=== PATIENT | male | born 1995 | race Caucasian/White ===

== ENCOUNTER 2017-10-04 23:10 | Emergency (ER) | payer OTHER ==
[2017-10-04 23:13] VITALS: BP 132/71; PULSE 122; RESP 16; TEMP 97.7; O2SAT 98
[2017-10-04] MEDS ORDERED: FAMOTIDINE 20 MG TAB PO ONE (23:21)
[2017-10-04] MEDS ORDERED: diphenhydrAMINE 25 MG CAP PO ONE (23:21)
--- NOTE | 2017-10-04 23:26 | EDPHY ---
H & P Smoking Status: Current some day smoker Time Seen by Provider: 10/04/17 23:15 HPI/ROS: CHIEF COMPLAINT: Hives HISTORY OF PRESENT ILLNESS: 22-year-old male generally healthy complaining 24 hr hives primarily to his upper extremities and trunk. He denies prior history of similar. Denies: Chest pain, dyspnea, dysphagia, odynophagia, back pain, intraoral lesions, diarrhea, ocular irritation. REVIEW OF SYSTEMS: A ten point review of systems was performed and is negative with the exception of the items mentioned in the HPI PAST MEDICAL & SURGICAL HISTORY: No pertinent medical or surgical history SOCIAL HISTORY:Nonsmoker PHYSICAL EXAM (Prior to examination, patient consented to physical exam, hands were washed and my usual and customary physical exam procedures followed) 1) GENERAL: Well-developed, well-nourished, alert and oriented. Appears to be in no acute distress. Smiling shakes my hand appears well overall 2) HEAD: Normocephalic, atraumatic 3) HEENT: Pupils equal, round, reactive to light bilaterally. Sclera anicteric. Nasopharynx, oropharynx, clear, no lesions. No tonsillar enlargement or exudate. 4) NECK: Full range of motion, no meningeal signs. 5) LUNGS: Clear auscultation bilaterally, no wheezes, no rhonchi, no retractions. 6) HEART: Regular rate and rhythm, no murmur, no heave, no gallop. 7) ABDOMEN: No guarding, no rebound, no focal tenderness, 8) MUSCULOSKELETAL: No peripheral edema or discoloration. 9) BACK: intermittent urticaria. 10) SKIN: Patient's bilateral upper extremities and anterior trunk diffuse salmon colored raised started 11) Psychiatric: Patient is oriented X 3, there is no agitation. DIFFERENTIAL DIAGNOSIS: In no particular include but limited to urticaria, contact dermatitis, anaphylaxis (Sunshine,Sherry Dominga) Constitutional: Initial Vital Signs Temperature (C) 36.5 C 10/04/17 23:12 Heart Rate 122 H 10/04/17 23:12 Respiratory Rate 16 10/04/17 23:12 Blood Pressure 132/71 H 10/04/17 23:12 O2 Sat (%) 98 10/04/17 23:12 Allergies/Adverse Reactions: poison raúl extract Allergy (Verified 02/13/16 17:11) Home Medications: Medication Instructions Recorded Famotidine [Pepcid 20 MG (*)] 20 mg PO BID #4 tab 10/04/17 diphenhydrAMINE [Benadryl 25 MG 25 mg PO Q6 #8 tab 10/04/17 (*)] MDM/Departure - MDM Medications Given: Discontinued Medications Diphenhydramine HCl (Benadryl) 50 mg PO EDNOW ONE Stop: 10/04/17 23:22 Last Admin: 10/04/17 23:23 Dose: 50 mg Famotidine (Pepcid) 40 mg PO EDNOW ONE Stop: 10/04/17 23:22 Last Admin: 10/04/17 23:23 Dose: 40 mg ED Course/Re-evaluation: I think this patient's symptoms are more likely secondary to urticaria. Discussed possibility of contact dermatitis I recommend he attempt to identify any offending allergens and remove these . His lungs are clear bilaterally and shows no signs of respiratory distress. Doubt anaphylaxis. He has been given dose of H1 and H2 receptor antagonists emergency department. I do not think that epinephrine or steroids currently indicated. I do not think that hospital admission is indicated. He feels comfortable being discharged. Recommend continue H1 H2 antagonists. Usual and customary allergic reaction precautions instructions provided. Care of patient under supervision of secondary supervising physician Dr Montoya . (Sherry Gonsalez) PHYSICIAN DOCUMENTATION: The patient was evaluated and managed by the Physician Airways Control Specialist. My co- signature indicates that I have reviewed this chart and I agree with the findings and plan of care as documented. I am the secondary supervising physician. (Dayna Montoya) - Depart Disposition: Home, Routine, Self-Care Clinical Impression: Urticaria Condition: Good Instructions: Urticaria (ED) Additional Instructions: Call 911 if you develop difficulty swallowing or breathing or any other symptoms that concern you. Prescriptions: diphenhydrAMINE [Benadryl 25 MG (*)] 25 mg PO Q6 #8 tab Famotidine [Pepcid 20 MG (*)] 20 mg PO BID #4 tab Referrals: Peggy Varghese [Primary Care Provider] - 2-3 days, call for appt.
== END 2017-10-04 23:32 | disposition home or self-care (01) ==
DX: L50.9 Urticaria, unspecified (principal)

== ENCOUNTER 2018-10-22 23:28 | Emergency (ER) | payer OTHER ==
[2018-10-23] MEDS ORDERED: IPRATROPIUM/ALBUTEROL 3 ML DEYVIAL IH ONE (00:34)
[2018-10-23] MEDS ORDERED: DEXAMETHASONE 4 MG TAB PO ONE ×2 (00:34)
[2018-10-23] MEDS ORDERED: FAMOTIDINE 20 MG TAB PO ONE (00:34)
[2018-10-23] MEDS ORDERED: DEXAMETHASONE 10 MG/ML VIAL IVP ONE (00:38)
--- NOTE | 2018-10-23 01:06 | EDPHY ---
H & P Stated Complaint: Lump feeling in throat since Saturday. Time Seen by Provider: 10/22/18 23:45 HPI/ROS: CC: throat discomfort HPI: This 23-year-old male with past medical history of kyphosis and allergies presents to the emergency department today with his mother complaining of feeling discomfort in his throat and his if his breathing becomes restricted. He states his neck has felt "tense, like something in there is in the wrong place" for the last 2 days. He had similar symptoms 2 years ago and and says when he had [facility] look in his throat they said his "epiglottis was a little tighter than usual." He recently saw an urgent care for similar issues in they gave him a DuoNeb which he states helped for a short period of time as well as an albuterol inhaler. He states the symptoms can occur at any time and are occasionally worse when he lies down. Sometimes he feels short of breath with conversation. He is able to eat and drink and exercise without difficulty. He also states that when he went on spring break a friend told him he sounded like he was suffocating when he was sleeping. He admits to being under lot of stress in his studies. He has 1 year left of his undergraduate degree in Linguistics and plans on doing a master's program. He does vape and smokes marijuana every few days. He also drinks 4 alcoholic beverages a few times a week. He drinks caffeine daily. He quit tobacco use 1 year ago and prior to that smoked 1/2 to 1 pack per day since age 20. He denies fever, chills, headache, ear pain, stiff neck, chest pain, abdominal pain, nausea or vomiting. REVIEW OF SYSTEMS: Constitutional: No fever, no chills. Eyes: No discharge. ENT: See HPI. Respiratory: No cough. Cardiac: No chest pain, no palpitations. Gastrointestinal: No abdominal pain, no vomiting. Genitourinary: No dysuria. Musculoskeletal: No back pain. Skin: No rashes. Neurological: No headache. Source: Patient, Family (Mother) Exam Limitations: No limitations - Personal History Current Tetanus/Diphtheria Vaccine: Yes Current Tetanus Diphtheria and Acellular Pertussis (TDAP): Yes Tetanus Vaccine Date: 2016 - Medical/Surgical History PMH: Past medical history: kyphosis, allergies, possibly TMJ. Past surgical history: Denied Family history: Mother has low thyroid and states she had a similar issue with swallowing when she was her child's age, father has thyroid disorder and sleep apnea. No known drug allergies Medications include recently prescribed albuterol inhaler and potentially over- the-counter Zyrtec Primary care provider is Dr. Peggy Cristina Asthma: No Hx Chronic Respiratory Disease: No Hx Diabetes: No Hx Cardiac Disease: No Hx Renal Disease: No Hx Cirrhosis: No Hx Alcoholism: No Hx HIV/AIDS: No Hx Splenectomy or Spleen Trauma: No Other PMH: KYPHOSIS, TMJ, marijuana, vaping, Urgent treated for Asthma, seasonal allergies. - Social History Smoking Status: Current every day smoker Additional Social History: The patient quit tobacco approximately 1 year ago. Prior to that he smoked 1/2 to 1 pack per day since age 20. He continues to vape. He drinks 4 alcoholic beverages a few times per week. Last drink was yesterday. He uses marijuana once every couple of days. His last use was this evening. He drinks caffeine daily. 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 - Physical Exam Exam: General Appearance: Alert, no respiratory distress. No conversational dyspnea or abnormal breathing. However, when the patient is trying to demonstrate his concern it appears that he voluntarily restricts his airway to sounds like stridor. Eyes: Pupils equal and round no pallor or injection. ENT, Mouth: Mucous membranes are moist. Airway is patent. Oropharynx is clear without erythema or exudate. Uvula is midline and without edema. The patient is able to swallow without difficulty. Respiratory: There are no retractions, lungs are clear to auscultation. Breath sounds are equal and full bilaterally. Cardiovascular: Regular rate and rhythm. No murmurs, gallops, or rubs. Gastrointestinal: Abdomen is soft and nontender, no masses, bowel sounds normal. Neurological: Awake and alert, sensory and motor exams grossly normal. Skin: Warm and dry, no rashes. Musculoskeletal: Neck is supple, nontender. No palpable or visible masses. Back: Kyphosis. Extremities are symmetrical, full range of motion. Psychiatric: Patient is oriented X 3, there is no agitation. Voice is slightly tremulous and the patient appears anxious. DIFFERENTIAL DIAGNOSIS: After history and physical exam differential diagnosis was considered for but not limited to and in no particular order: Epiglottitis , foreign body, tumor, Zenker's diverticulum, allergies, reflux, stress Constitutional: Initial Vital Signs Temperature (C) 99.5 F 10/22/18 23:40 Heart Rate 92 10/22/18 23:40 Respiratory Rate 16 10/22/18 23:40 Blood Pressure 146/100 H 10/22/18 23:40 O2 Sat (%) 97 10/22/18 23:40 O2 Delivery Mode Room Air Allergies/Adverse Reactions: poison raúl extract Allergy (Intermediate, Verified 10/22/18 23:33) Rash Home Medications: Medication Instructions Recorded Albuterol 5 mg/ml INH 10/22/18 Medical Decision Making - Diagnostics Imaging: I viewed and interpreted images myself (Normal soft tissue neck) ED Course/Re-evaluation: The patient was seen and examined. Vital signs reviewed. Prior records reviewed. Prior soft tissue of patient's neck in 2016 was normal. Soft tissue neck today was also normal by my read. The patient states a DuoNeb at the urgent care had improved his symptoms therefore he was given a DuoNeb. He was also given Decadron 10 mg orally to help treat potential allergy related issues or other inflammation and Pepcid 20 mg orally. He is feeling somewhat better. He has declined a CT scan of the soft tissues of his neck. I have discussed my thoughts with him but have admitted I do not know what is causing his symptoms and he will need follow-up with his primary care provider as well as his ENT specialist. I feel he is safe to go home and he and his mother both agree. They will follow up as directed or return to the emergency room sooner if any further problems or concerns. - Data Points Medications Given: Discontinued Medications Albuterol/Ipratropium (Duoneb) 3 ml IH EDNOW ONE Stop: 10/23/18 00:35 Last Admin: 10/23/18 00:48 Dose: 3 ml Dexamethasone (Decadron) 2 mg PO EDNOW ONE Stop: 10/23/18 00:35 Last Admin: 10/23/18 00:40 Dose: Not Given Dexamethasone (Decadron) 8 mg PO EDNOW ONE Stop: 10/23/18 00:35 Last Admin: 10/23/18 00:40 Dose: Not Given Dexamethasone (Decadron Injection) 10 mg IVP EDNOW ONE Stop: 10/23/18 00:39 Last Admin: 10/23/18 00:48 Dose: 10 mg Famotidine (Pepcid) 20 mg PO EDNOW ONE Stop: 10/23/18 00:35 Last Admin: 10/23/18 00:48 Dose: 20 mg Departure - Departure Disposition: Home, Routine, Self-Care Clinical Impression: Throat discomfort Condition: Good Instructions: Direct Laryngoscopy (DC) Additional Instructions: I am not sure what is causing your throat discomfort. Call tomorrow to arrange follow up with your primary care provider as well as your ENT or other specialists as recommended by your primary care provider. You may need further evaluation including a CT scan of the soft tissues of your neck or they may want to look into your throat with a camera. Please refrain from smoking tobacco or marijuana or drinking alcohol until the cause of your symptoms have been identified. Return to the ER if symptoms change or worsen as discussed. Referrals: Peggy Varghese [Non Staff Provider ()] - As per Instructions
[2018-10-23 01:34] VITALS: BP 129/75
== END 2018-10-23 01:25 | disposition home or self-care (01) ==
LOC: CED 23:28
DX: R07.0 Pain in throat (principal)
CPT/HCPCS: 70360-PO; 96374-ER; 99284-ER; J1100

== ENCOUNTER → 2018-10-30 | Outpatient (CLI) | payer OTHER | LOC: EMCIMAGING 08:17 | PROVIDERS: ATTEND Family Medicine | DX: R07.0 Pain in throat (principal) | CPT/HCPCS: 70491-PN ==